=== PATIENT | male | born 1955 | race Caucasian/White ===

== ENCOUNTER 2023-08-02 10:06 | Day surgery (SDC) | payer MEDICARE, MEDICAID ==
[~2023-08-02 10:06] MED LIST: Sodium Chloride 0.9% 10 ML Syringe FLUSH PRN; Sodium Chloride 0.9% 2.5 ML Syringe FLUSH PRN; Sodium Chloride 0.9% 20 ML SDV IV PRN
[2023-08-02] MEDS: Lactated Ringers 1,000 ML IV SCH (11:07)
[2023-08-02] MEDS ORDERED: Lidocaine 2% 5 ML SDV ONE (11:45)
[2023-08-02] MEDS ORDERED: Propofol 200 MG/20 ML SDV ONE (11:45)
[2023-08-02] MEDS ORDERED: fentaNYL 100 MCG/2 ML SDV ONE (11:55)
[2023-08-02] MEDS ORDERED: Phenylephrine HCl In 0.9% NaCl 1 MG/10 ML Syringe ONE (12:03)
[2023-08-02] MEDS ORDERED: Ondansetron 4 MG/2 ML SDV ONE (12:13)
== END 2023-08-02 12:50 | disposition home or self-care (01) ==
LOC: MW.SDS 10:06
PROVIDERS: ATTEND Surgery
DX: C15.9 Malignant neoplasm of esophagus, unspecified (principal); K22.89 Other specified disease of esophagus; J44.9 Chronic obstructive pulmonary disease, unspecified; I10 Essential (primary) hypertension; F17.210 Nicotine dependence, cigarettes, uncomplicated; Z79.899 Other long term (current) drug therapy
CPT/HCPCS: 43239; J2371; J2405; J2704; J3010; J7120; 00731; 88305; 88341; 88342; 88360; J3490

== ENCOUNTER 2023-09-02 06:12 | Day surgery (SDC) | payer MEDICARE, MEDICAID ==
[2023-09-02] MEDS: Lactated Ringers 1,000 ML IV SCH (06:54)
[2023-09-02] MEDS ORDERED: Bupivacaine 0.5% 30 ML SDV ONE (07:19)
[2023-09-02] MEDS ORDERED: Heparin Sodium 100 Units/ML 3 ML Syringe ONE (07:19)
[2023-09-02] MEDS ORDERED: Lidocaine 1% 20 ML MDV ONE (07:20)
[2023-09-02] MEDS ORDERED: Propofol 200 MG/20 ML SDV ONE (07:35)
[2023-09-02] MEDS ORDERED: Ondansetron 4 MG/2 ML SDV ONE (07:35)
[2023-09-02] MEDS ORDERED: Lidocaine 2% 11 ML Jelly Filled Syringe ONE (07:35)
[2023-09-02] MEDS ORDERED: fentaNYL 100 MCG/2 ML SDV ONE (07:35)
[2023-09-02] MEDS ORDERED: Metoclopramide 10 MG/2 ML SDV IVPUSH PRN (08:00)
[2023-09-02] MEDS ORDERED: Ondansetron 4 MG/2 ML SDV IVPUSH PRN (08:00)
[2023-09-02] MEDS ORDERED: Naloxone 0.4 MG/ML SDV IVPUSH PRN (08:00)
[2023-09-02] MEDS ORDERED: droPERidol 5 MG/2 ML SDV IVPUSH PRN (08:00)
[2023-09-02] MEDS ORDERED: HYDROmorphone 1 MG/ML Syringe IVPUSH PRN (08:00)
[2023-09-02] MEDS ORDERED: Albuterol 0.083% 2.5 MG/3 ML Neb Soln NEB PRN (08:00)
[2023-09-02] MEDS ORDERED: Morphine 2 MG/ML SYRINGE IVPUSH PRN (08:00)
[2023-09-02] MEDS ORDERED: ceFAZolin 2 GM Vial ONE (08:05)
[2023-09-02] MEDS: fentaNYL 50 MCG/ML SDV IVPUSH PRN (09:27)
[2023-09-02] MEDS: Ketorolac 30 MG/ML SDV IVPUSH ONE (10:20)
[2023-09-02] MEDS: Ketorolac 30 MG/ML SDV ONE (10:37)
[2023-09-02] MEDS ORDERED: ceFAZolin 2 GM in Sodium Chloride 0.9% 50 ML IV ONE (14:08)
== END 2023-09-02 11:00 | disposition home or self-care (01) ==
LOC: MW.SDS 06:12
PROVIDERS: ATTEND Surgery
DX: C15.9 Malignant neoplasm of esophagus, unspecified (principal); J44.9 Chronic obstructive pulmonary disease, unspecified; I10 Essential (primary) hypertension; K21.9 Gastro-esophageal reflux disease without esophagitis; F17.210 Nicotine dependence, cigarettes, uncomplicated
CPT/HCPCS: 36561; 71045; A9270; J0665; J0690; J1642; J1885; J2704; J3010; J7120; J2405; J3490

== ENCOUNTER 2023-10-18 09:41 | Emergency (ER) | payer MEDICARE, MEDICAID | END 2023-10-18 11:39 | disposition left against medical advice (07) | LOC: MW.ED 09:41 | DX: Z51.11 Encounter for antineoplastic chemotherapy (principal); Z51.0 Encounter for antineoplastic radiation therapy; C15.9 Malignant neoplasm of esophagus, unspecified; K74.60 Unspecified cirrhosis of liver; F17.210 Nicotine dependence, cigarettes, uncomplicated; Z79.899 Other long term (current) drug therapy | CPT/HCPCS: 77386 ==

== ENCOUNTER 2024-03-07 09:41 | Day surgery (SDC) | payer MEDICARE, MEDICAID ==
[~2024-03-07 09:41] MED LIST changes: +Albuterol 0.083% 2.5 MG/3 ML Neb Soln NEB PRN; +HYDROmorphone 1 MG/ML Syringe IVPUSH PRN; +Metoclopramide 10 MG/2 ML SDV IVPUSH PRN; +Morphine 2 MG/ML SYRINGE IVPUSH PRN; +Naloxone 0.4 MG/ML SDV IVPUSH PRN; +Ondansetron 4 MG/2 ML SDV IVPUSH PRN; +Phenylephrine HCl In 0.9% NaCl 1 MG/10 ML Syringe IVPUSH PRN; -Sodium Chloride 0.9% 10 ML Syringe FLUSH PRN; -Sodium Chloride 0.9% 2.5 ML Syringe FLUSH PRN; -Sodium Chloride 0.9% 20 ML SDV IV PRN; +ceFAZolin 1 GM in Sodium Chloride 0.9% 50 ML IV ONE; +fentaNYL 100 MCG/2 ML SDV ONE; +fentaNYL 50 MCG/ML SDV IVPUSH PRN; +propofoL 50 ML ONE
[2024-03-07] MEDS ORDERED: Bupivacaine 0.5% 30 ML SDV ONE (09:49)
[2024-03-07] MEDS: Lactated Ringers 1,000 ML IV SCH (10:08)
[2024-03-07] MEDS ORDERED: Phenylephrine HCl In 0.9% NaCl 1 MG/10 ML Syringe ONE (11:19)
== END 2024-03-07 12:00 | disposition home or self-care (01) ==
LOC: MW.SDS 09:41
PROVIDERS: ATTEND Surgery
DX: Z45.2 Encounter for adjustment and management of vascular access device (principal); F17.210 Nicotine dependence, cigarettes, uncomplicated; Z85.01 Personal history of malignant neoplasm of esophagus; Z98.890 Other specified postprocedural states; Z79.899 Other long term (current) drug therapy
CPT/HCPCS: 36590; J0665; J2371; J2704; J3010; J7120